=== PATIENT | female | born 1995 | race Caucasian/White ===

== ENCOUNTER → 2019-04-02 08:46 | Outpatient (CLI) | payer BC, SELFPAY ==
[2019-04-02 10:25] LABS: Basophils # 0.1 K/mm3 (0-0.2); Basophils % 0.7 % (0.1-2.0); Eosinophils # 0.2 K/mm3 (0.0-0.4); Eosinophils % 2.6 % (0.1-12.0); Hematocrit 42.3 % (37.0-47.0); Hemoglobin 13.3 g/dL (12.2-16.2); Lymphocytes # 3.2 K/mm3 (0.7-4.5); Lymphocytes % 42.1 % (10-50); Mean Corpuscular HGB Conc 31.4 g/dL (31.8-35.4); Mean Corpuscular Hemoglobin 27.8 pg (27.0-31.2); Mean Corpuscular Volume 88.4 fl (81-99); Mean Platelet Volume 6.7 fl (7.4-10.4); Monocytes # 0.5 K/mm3 (0.1-1.0); Neutrophils # 3.7 K/mm3 (1.8-7.8); Neutrophils % 48.5 % (37.0-80.0); Platelet Count 285 K/mm3 (142-424); Red Blood Count 4.79 M/mm3 (4.20-5.40); Red Cell Distribution Width 13.2 % (11.5-17.5); White Blood Count 7.6 K/mm3 (4.8-10.8)
[2019-04-02 11:12] LABS: Alanine Aminotransferase 26 U/L (12-78); Albumin Level 3.8 gm/dL (3.4-5.0); Albumin/Globulin Ratio 1.1 (1.1-1.8); Alkaline Phosphatase 53 U/L (46-116); Anion Gap 14.5 mEq/L (5-15); Aspartate Amino Transferase 16 U/L (15-37); Bilirubin,Total 0.5 mg/dL (0.2-1.0); Blood Urea Nitrogen 12 mg/dL (7-18); Calcium 9.4 mg/dL (8.5-10.1); Carbon Dioxide 27 mmol/L (21.0-32.0); Chloride 104 mmol/L (98-107); Creatinine,Serum 0.95 mg/dL (0.55-1.02); Estimated Glomerular Filt Rate 72 ml/min (>60); GFR (African American) 87 ML/MIN (>60); Globulin 3.5 gm/dl (1.3-3.2); Glucose 97 mg/dL (74-106); Potassium 4.5 mmoL/L (3.5-5.1); Sodium 141 mmol/L (136-145); Total Protein,Serum 7.3 gm/dL (6.4-8.2)
[2019-04-04 20:02] LABS: Folate 12.9 ng/mL (>3.0)
[2019-04-04 20:03] LABS: Vitamin B12 539 pg/mL (232-1245)
== END ==
PROVIDERS: Visit Provider Internal Medicine Adolescent Medicine
DX: R53.83 Other fatigue (principal); R53.81 Other malaise
CPT/HCPCS: 36415; 80053; 82607; 82746; 85025

== ENCOUNTER 2020-06-04 15:56 | Outpatient (CLI) | payer BC, SELFPAY ==
[2020-06-04 16:25] VITALS: BP 135/92; PULSE 103; RESP 18; TEMP 36.6
[2020-06-04 17:00] VITALS: BP 125/66; PULSE 89; RESP 18
== END 2020-06-04 17:10 | disposition home or self-care (01) ==
PROVIDERS: PCP Internal Medicine Adolescent Medicine
DX: H54.62 Unqualified visual loss, left eye, normal vision right eye (principal)
CPT/HCPCS: 96365

== ENCOUNTER 2020-06-05 16:07 | Outpatient (CLI) | payer BC, SELFPAY ==
[2020-06-05 16:10] VITALS: BP 118/59; PULSE 91; RESP 18; TEMP 36.6; O2SAT 97
[2020-06-05 16:53] VITALS: BP 133/59; PULSE 76; RESP 18
== END 2020-06-05 16:53 | disposition home or self-care (01) ==
LOC: INF 16:07
PROVIDERS: PCP Internal Medicine Adolescent Medicine
DX: H54.62 Unqualified visual loss, left eye, normal vision right eye (principal)
CPT/HCPCS: 96365

== ENCOUNTER → 2020-08-15 10:01 | Outpatient (CLI) | payer BC, SELFPAY | PROVIDERS: PCP Internal Medicine Adolescent Medicine; Visit Provider Internal Medicine Adolescent Medicine | DX: Z03.818 Encounter for observation for suspected exposure to other biological agents ruled out (principal) | CPT/HCPCS: U0003 ==

== ENCOUNTER → 2021-06-08 14:52 | Outpatient (CLI) | payer OTHER, SELFPAY | PROVIDERS: PCP Internal Medicine Adolescent Medicine; Visit Provider Nurse Practitioner | DX: Z20.822 Contact with and (suspected) exposure to COVID-19 (principal) | CPT/HCPCS: C9803; U0003; U0005 ==

== ENCOUNTER → 2021-08-10 14:59 | Outpatient (POV) | payer BC, SELFPAY | PROVIDERS: Visit Provider Dermatology | DX: Z00.00 Encounter for general adult medical examination without abnormal findings (principal) ==

== ENCOUNTER → 2021-08-30 16:37 | Outpatient (CLI) | payer OTHER, BC, SELFPAY | PROVIDERS: PCP Internal Medicine Adolescent Medicine; Visit Provider Nurse Practitioner | DX: Z20.822 Contact with and (suspected) exposure to COVID-19 (principal) | CPT/HCPCS: C9803; U0003; U0005 ==

== ENCOUNTER → 2021-09-08 15:25 | Outpatient (CLI) | payer OTHER, BC, SELFPAY | PROVIDERS: PCP Radiology Diagnostic Radiology; Visit Provider Nurse Practitioner | DX: Z20.822 Contact with and (suspected) exposure to COVID-19 (principal) | CPT/HCPCS: C9803; U0003; U0005 ==

== ENCOUNTER → 2021-09-15 12:17 | Outpatient (CLI) | payer BC, SELFPAY | PROVIDERS: PCP Radiology Diagnostic Radiology; Visit Provider Nurse Practitioner | DX: Z20.822 Contact with and (suspected) exposure to COVID-19 (principal) | CPT/HCPCS: C9803; U0003; U0005 ==

== ENCOUNTER → 2021-09-20 15:45 | Outpatient (CLI) | payer OTHER, BC, SELFPAY | PROVIDERS: PCP Internal Medicine Adolescent Medicine; Visit Provider Nurse Practitioner | DX: U07.1 COVID-19 (principal) | CPT/HCPCS: C9803; U0003; U0005 ==

== ENCOUNTER → 2021-10-29 15:18 | Outpatient (CLI) | payer BC, SELFPAY ==
--- NOTE | 2021-10-29 16:18 | XR_ITS ---
FINAL REPORT CLINICAL HISTORY: COVID OUTPATIENT, COUGH, HX OF COVID 10/09 FINDINGS: The heart size is normal. The mediastinum is normal. There is no focal infiltrate or edema. There are left lung base opacities consistent with pneumonia. There is no pneumothorax. There is no osseous abnormality. IMPRESSION: Left basilar pneumonia. Reviewed, Interpreted and Dictated by Khai Bazan III, MD Transcribed by Miguel Campos Authenticated by Khai Bazan III, MD on 10/29/2021 04:36:[address] [facility]
== END ==
PROVIDERS: PCP Internal Medicine Adolescent Medicine; Visit Provider Internal Medicine Adolescent Medicine
DX: Z11.52 Encounter for screening for COVID-19 (principal); R50.9 Fever, unspecified; R05.9 Cough, unspecified
CPT/HCPCS: 71045; 87275; 87276; C9803; U0003; U0005

== ENCOUNTER → 2021-11-23 16:53 | Outpatient (CLI) | payer BC, SELFPAY ==
--- NOTE | 2021-11-23 | XR_ITS ---
PROCEDURE INFORMATION: Exam: XR Chest Exam date and time: 11/23/2021 12:00 AM Age: 26 years old Clinical indication: Pain; Right-sided TECHNIQUE: Imaging protocol: XR of the chest. Views: 2 views. COMPARISON: CR XR CHEST PORTABLE 10/29/2021 4:17 PM FINDINGS: Lungs: Scattered minimal to mild patchy airspace opacities. Pleural spaces: No significant pleural effusion. No pneumothorax. Heart/Mediastinum: No cardiomegaly. Bones/joints: No displaced fracture. Soft tissues: Unremarkable. IMPRESSION: Findings compatible with multifocal pneumonia (bacterial or viral). Followup to resolution to exclude underlying pathology.
== END ==
PROVIDERS: PCP Nurse Practitioner Family; Visit Provider Nurse Practitioner Family
DX: R07.9 Chest pain, unspecified (principal); R05.9 Cough, unspecified
CPT/HCPCS: 71046

== ENCOUNTER → 2021-12-02 16:32 | Outpatient (CLI) | payer BC, SELFPAY | PROVIDERS: Visit Provider Internal Medicine Pulmonary Disease | DX: Z01.812 Encounter for preprocedural laboratory examination (principal); Z11.52 Encounter for screening for COVID-19 | CPT/HCPCS: C9803; U0003; U0005 ==

== ENCOUNTER 2021-12-03 12:11 | Day surgery (SDC) | payer BC, SELFPAY ==
[2021-12-03] VITALS (8 sets, daily range): BP systolic 100–118; BP diastolic 56–82; PULSE 104–122; RESP 16–20; TEMP 36.7–37.2; O2SAT 93–99; BMI 29.2
[2021-12-03 12:30] LABS: Urine Pregnancy, HCG Qual. Negative (Negative)
--- NOTE | 2021-12-03 13:46 | SUR.PREOP ---
1330 - PT RESTING IN BED. NO NEEDS OR CONCERNS VOICED. AT BEDSIDE.
--- NOTE | 2021-12-03 15:27 | P.PN_ITS ---
[facility] [place] Anesthesia Checklist - Patient Identification Patient Identification: Arm Band - Structural Data Admitted From: Home Planned Operative Procedure/s: Bronchoscopy Consent for Planned Operative Procedure(s) Verified: Yes Verified Documents: Surgical Consent, History and Physical - NPO Status Verified Time NPO: 00:00 - Additional verifications Anesthesia Reactions: No Hx Blood Transfusions: No Blood Transfusion Reaction: No - Airway Assessment C-Spine Mobility Assessed: Yes (mp2) TMJ Mobility Assessed: Yes Dentition: Good Dentition - Neurological Assessment Level of Consciousness: Awake, Alert - Anesthesia Plan Anesthesia Risk discussed: Yes Anesthesia Plan: Verified ASA Class: II Anesthesia Type: General [facility] [place] History I have reviewed the patient's past medical history: Yes Medical History: Denies:: Cancer, Diabetes Mellitus Type 1, Diabetes Mellitus Type 2, Internal Pacemaker, MRSA, Seizures *Have you ever received a pneumonia vaccine?: No *Have you received a flu vaccine this season?: Yes Other Medical History: Denies: Blood Transfusion Reaction Anesthesia experience/problems:: nac Other Surgeries: Yes: Appendectomy, , Other. No: Pacemaker Amputation: No Fractures: No - *Social History Last grade of school completed: Advanced degree Smoking Status: Never smoker Alcohol Intake: never Alcohol Intake Frequency:: a few times a week Substance Use Type: denies use *Occupational Status:: employed Housing: house Household Members: family, children *Travel in the last 8 weeks: None Family Hx:: Cancer
--- NOTE | 2021-12-03 15:45 | XR_ITS ---
FINAL REPORT CLINICAL HISTORY: BRONCH back in surgery FINDINGS: FLUORO TIME PROCEDURE: Fluoroscopy in the operating room. HISTORY: Bronchoscopy FINDINGS: Fluoroscopy time was provided by the radiology department for the clinical service. 1 film was obtained. Fluoroscopy exposure time: 1.5 minutes IMPRESSION: See above Reviewed, Interpreted and Dictated by Khai Bazan III, MD Transcribed by Corrie Anaya Authenticated by Khai Bazan III, MD on 12/03/2021 04:45:16 PM [facility]
--- NOTE | 2021-12-03 15:56 | HMH.BRONCH ---
- Procedure: Date: 12/03/21 Patient Date of :: 1995 Procedure Performed:: Bronchoscopy with bronchoalveolar lavage and Transbronchial Biopsy Indications:: Recurrent Pneumonia Performing Provider:: Armin Carreon MD Referring Provider:: Dr. Day Sedation:: General Anesthesia Procedure:: Bronchoscopy with bronchoalveolar lavage and Transbronchial Biopsy: Clean therapeutic bronchoscope is advanced via ET tube and airways were examined upto segmental bronchi. No obvious airway abnormality noted. Airways appear grossly normal. No excess mucous secretions noted, no obvious bleeding or old blood clots noted. Bronchoalveolar lavage was performed in left upper lobe apicoposterior with total of 60cc normal saline instillation with return of clear 35 cc back. BAL fluid was send for AFB, fungal, bacterial stain and cultures along with cytopathology. Bronchoalveolar lavage was performed in right upper lobe anterior segment with total of 60cc normal saline instillation with return of clear 40 cc back. BAL fluid was send for AFB, fungal, bacterial stain and cultures along with cytopathology. Transbronchial biopsies were performed in ight upper lobe anterior segment. Total of 9 biopsies were performed. Five biopsy samples were sent in formalin for cytpathological examination. Remaining four biopsy specimens were sent in normal saline specimen cups with two specimens each requested for AFB, fungal, bacterial stain and cultures AFB and fungal stains were also requested on BAL and transbronchial biopsies on cytopathological request form. Findings:: Please see procedure note Recommendations:: F/U clinic in 7 days Complications:: None Estimated blood obtained (mL): 5
--- NOTE | 2021-12-03 16:25 | PC.NURSE ---
1618-detailed report called to MADDISON Webb 1620-pt transported to post op via stretcher w/sonya rails up and left in care of MADDISON Webb with bed locked in lowest position, vss, pt stable
--- NOTE | 2021-12-04 13:21 | HMH.ANESII ---
[facility] Anesthesia Record Part II Discharge Time: 16:20 Destination: Surgical Day Care (OP Surgery) PACU nurse assessment reviewed?: Yes Patient Condition:: Good Anesthesia Complications:: None Swallowing reflex intact?: Yes Cyanosis?: No Blood Pressure: 111/70 Pulse Rate: 104 Temperature: 98.9 F Mental Status: Alert & Oriented Pain level:: 0 Nausea and/or vomitting:: None Intake, IV Amount: 0
[2021-12-04 13:22] VITALS: BP 111/70; PULSE 104; TEMP 37.2
--- NOTE | 2021-12-04 13:24 | HMH.ANESI ---
[facility] Anesthesia Record Part I Intake, IV Amount: 800 Estimated blood loss (mL): 0 Urine output (mL): 0 Blood Pressure: 107/82 SaO2: 97 Pulse Rate: 122 Respiratory Rate: 16 Temperature: 99 F Patient is:: Drowsy, Stable Stable to PACU at:: 15:50
[2021-12-04 13:26] VITALS: BP 107/82; PULSE 122; RESP 16; TEMP 37.2; O2SAT 97
== END 2021-12-03 16:52 | disposition home or self-care (01) ==
LOC: OR 12:15
PROVIDERS: PCP Internal Medicine Adolescent Medicine; Visit Provider Internal Medicine Pulmonary Disease
PROC: (CPT 31624; principal; 2021-12-03 12:45)
DX: J18.9 Pneumonia, unspecified organism (principal); Z86.16 Personal history of COVID-19; R05.3 Chronic cough
CPT/HCPCS: 31624; 31628; 71045; 76000; 81025; 87070; 87077; 87102; 87116; 87186; 87205; 87206; 89051; J2405; J2710

== ENCOUNTER 2021-12-03 19:01 | Emergency (ER) | payer BC, SELFPAY ==
[2021-12-03] VITALS (7 sets, daily range): BP systolic 95–121; BP diastolic 46–60; PULSE 102–136; RESP 18–22; TEMP 36.8–38.7; O2SAT 88–99; BMI 28.3
--- NOTE | 2021-12-03 19:09 | ECG_ITS ---
APPROVED REPORT Exam: Resting ECG HR:122 bpm ECG Measurements Heart Rate 122 AXES GA 113 P 79 QRSd 88 QRS 95 QT 295 T 66 QTc 368 Conclusion SINUS TACHYCARDIA WITH SHORT GA INTERVAL BORDERLINE RIGHT AXIS DEVIATION [QRS AXIS > 90] ABNORMAL RHYTHM ECG UNCONFIRMED REPORT Electronically signed by : Flako Day MD 12/04/2021 12:27:34
--- NOTE | 2021-12-03 19:33 | XR_ITS ---
PROCEDURE INFORMATION: Exam: XR Chest Exam date and time: 12/03/2021 7:29 PM Age: 26 years old Clinical indication: Shortness of breath; Prior surgery; Surgery date: Post-operative (0-2 days); Surgery type: Bronchoscopy today; Additional info: SOA TECHNIQUE: Imaging protocol: XR of the chest. Views: 2 views. COMPARISON: SD XR CHEST AP 12/03/2021 3:45 PM FINDINGS: Lungs: Patchy airspace opacity throughout the right mid and lower lung zones. Pleural spaces: Unremarkable. No pleural effusion. No pneumothorax. Heart/Mediastinum: Unremarkable. No cardiomegaly. Bones/joints: Unremarkable. IMPRESSION: Patchy airspace opacity throughout the right mid and lower lung zones for which follow-up to radiographic clearance is again recommended.
[2021-12-03 20:09] LABS: Basophils % 0.5 % (0.1-2.0); Chloride 107 mmol/L (98-107); Hematocrit 34.7 % (37.0-47.0); Hemoglobin 11.6 g/dL (12.2-16.2); Lymphocytes # 0.7 K/mm3 (0.7-4.5); Lymphocytes % 8.9 % (10-50); Mean Corpuscular HGB Conc 33.5 g/dL (31.8-35.4); Mean Corpuscular Hemoglobin 28.2 pg (27.0-31.2); Mean Corpuscular Volume 84.2 fl (81-99); Mean Platelet Volume 8.2 fl (7.4-10.4); Monocytes # 0.1 K/mm3 (0.1-1.0); Neutrophils # 6.4 K/mm3 (1.8-7.8); Neutrophils % 88.5 % (37.0-80.0); Platelet Count 272 K/mm3 (142-424); Red Blood Count 4.12 M/mm3 (4.20-5.40); White Blood Count 7.2 K/mm3 (4.8-10.8)
[2021-12-03 20:10] LABS: Potassium 3.6 mmoL/L (3.5-5.1); Sodium 137 mmol/L (136-145)
[2021-12-03 20:12] LABS: Alanine Aminotransferase 48 U/L (12-78); Alkaline Phosphatase 85 U/L (38-126); Aspartate Amino Transferase 43 U/L (14-36); Bilirubin,Total 0.4 mg/dl (0.2-1.3); Blood Urea Nitrogen 6 mg/dl (7-17); Creatinine Clearance Estimated 150 mL/min (50-200); Estimated Glomerular Filt Rate 119 ml/min (>60); GFR (African American) 144 ML/MIN (>60)
[2021-12-03 20:13] LABS: Albumin Level 3.7 g/dl (3.5-5.0); Albumin/Globulin Ratio 1.3 (1.1-1.8); Anion Gap 10.6 mEq/L (5-15); Calcium 7.9 mg/dl (8.4-10.2); Carbon Dioxide 23 mmol/L (22.0-30.0); Globulin 2.8 g/dL (1.3-3.2); Glucose 116 mg/dl (74-100); Lactic Acid 1.6 mmol/L (0.7-2.1); Total Protein,Serum 6.5 g/dl (6.3-8.2)
[2021-12-03 20:28] LABS: Troponin I < 0.01 ng/ml (0.00-0.034)
[2021-12-03 20:30] LABS: MANUAL DIFFERENTIAL MANUAL DIFFERENTIAL (MANUAL DIFF)
[2021-12-03 20:32] LABS: Procalcitonin 0.072 ng/mL (0.0-2.0)
--- NOTE | 2021-12-03 20:40 | HMH.EDSOB ---
ED Disposition Clinical Impression: Vasovagal episode Community acquired pneumonia Qualifiers: Laterality: unspecified laterality Qualified Code(s): J18.9 - Pneumonia, unspecified organism Disposition: Home, Self-Care Condition on Discharge: Good Instructions: DI for Shortness of Breath Additional Instructions: see pcp and pul for follow up Referrals: Flako Day MD [Primary Care Provider] - Armin Carreon MD [Physician] - - Critical Care Critical Care Time: No Attestation: On 12/03/21, the high probability of a clinically significant, sudden or life threatening deterioration of the following system(s) required my full and direct attention, intervention and personal management. The time I documented below is in addition to time spent performing reported procedures but includes the following listed in this critical care notation. Medical Decision Making - Medical Records Medical records reviewed: Yes: I reviewed the patient's medical records. - Owen Inquiry Pt receiving controlled substance: No Vital Signs: 12/03/21 19:02 Temperature 101.6 F H Temperature Source Oral Pulse Rate [Right] 131 H Respiratory Rate 22 Blood Pressure [Right Arm] 121/60 Blood Pressure Mean [Right Arm] 80 02 Sat by Pulse Oximetry 88 L Oxygen Delivery Method Room Air - Lab Data Lab results reviewed: Yes: I reviewed the patient's lab results. Lab Results 12/03/21 19:49: WBC 7.2, RBC 4.12 L, Hgb 11.6 L, Hct 34.7 L, MCV 84.2, MCH 28.2, MCHC 33.5, RDW 14.0, Plt Count 272, MPV 8.2, Neut % (Auto) 88.5 H, Lymph % (Auto) 8.9 L, Clayton % (Auto) 2.0, Eos % (Auto) 0.0 L, Baso % (Auto) 0.5, Neut # (Auto) 6.4, Lymph # (Auto) 0.7, Clayton # (Auto) 0.1, Eos # (Auto) 0.0, Baso # (Auto) 0.0 12/03/21 19:49: Sodium 137, Potassium 3.6, Chloride 107, Carbon Dioxide 23, Anion Gap 10.6, BUN 6 L, Creatinine 0.60, Estimated Creat Clear 150, Estimated GFR 119, Est GFR ( Amer) 144, Glucose 116 H, Calcium 7.9 L, Total Bilirubin 0.4, AST 43 H, ALT 48, Alkaline Phosphatase 85, Troponin I < 0.01, C-Reactive Protein 72.0 H, Total Protein 6.5, Albumin 3.7, Globulin 2.8, Albumin/Globulin Ratio 1.3 12/03/21 19:49: Lactate 1.6 Result diagrams: 12/03/21 19:49 12/03/21 19:49 Orders (Tests/Meds): ED MEDICATIONS Generic Name Dose Route Start Last Admin Trade Name Freq PRN Reason Stop Dose Admin Sodium Chloride 1,000 mls @ 999 mls/hr 12/03/21 19:45 12/03/21 19:55 Sod Chlor 0.9% 1000ml Bag IV 12/03/21 20:45 999 mls/hr .Q1H1M JOSE Administration Discontinued Medications Generic Name Dose Route Start Last Admin Trade Name Freq PRN Reason Stop Dose Admin Acetaminophen 1,000 mg 12/03/21 19:36 12/03/21 19:55 Acetaminophen 500mg Tab PO 12/03/21 19:37 1,000 mg ONCE ONE Administration Ketorolac Tromethamine 30 mg 12/03/21 19:36 12/03/21 19:55 Ketorolac 30mg/Ml Vial IV 12/03/21 19:37 30 mg ONCE ONE Administration Methylprednisolone Sodium Succinate 125 mg 12/03/21 19:36 12/03/21 19:55 Methylprednisolone Sod Succ 125mg Vial IV 12/03/21 19:37 125 mg ONCE ONE Administration ORDERS Category Date Time Status CTA Chest [CT angio chest PE protocol] Stat Cat Scan 12/03/21 19:35 Ordered C-Reactive Protein Stat Lab 12/03/21 19:49 Results Complete Blood Count Auto Diff Stat Lab 12/03/21 19:49 Results Comprehensive Metabolic Panel Stat Lab 12/03/21 19:49 Results Erythrocyte Sedimentation Rate Stat Lab 12/03/21 19:49 Results Procalcitonin Stat Lab 12/03/21 19:49 Results Troponin I Q3H Lab 12/03/21 23:00 Ordered Troponin I Q3H Lab 12/04/21 02:00 Ordered Troponin I Stat Lab 12/03/21 19:49 Results Blood Culture Stat Micro 12/03/21 19:49 Received - Radiology Data #1 Image(s): Chest Image Reviewed: Yes I have reviewed radiologist's interpretation Preliminary Findings: Abnormal (see report ) - ECG Data Tracing #1 Arrhythmias present: sinus tach Ischemic changes: non-s
--- NOTE | 2021-12-03 20:45 | PC.NURSE ---
Dr. Carney s/w Dr. Zuñiga
[2021-12-03 21:42] LABS: Erythrocyte Sedimentation Rate 119 mm/hr (0-20)
[2021-12-03 21:54] LABS: Lymphocytes % 11 % (10-50); Monocytes % 3 % (2-9); Neutrophils % 85 % (42-76); Platelet Estimate Normal; Total Cells Counted 100
== END 2021-12-03 21:02 | disposition home or self-care (01) ==
PROVIDERS: Emergency Medicine; Emergency Provider Emergency Medicine; PCP Internal Medicine Adolescent Medicine
DX: R55 Syncope and collapse (principal); J18.9 Pneumonia, unspecified organism; R00.0 Tachycardia, unspecified; R01.1 Cardiac murmur, unspecified; Z79.899 Other long term (current) drug therapy; Z80.9 Family history of malignant neoplasm, unspecified
CPT/HCPCS: 71046; 80053; 83605; 84145; 84484; 85007; 85025; 85651; 86140; 87040; 93005; 96361; 96365; 96374; 96375; 99284

== ENCOUNTER → 2022-05-11 08:55 | Outpatient (CLI) | payer BC, SELFPAY ==
[2022-05-11 09:43] LABS: Basophils # 0.2 K/mm3 (0-0.2); Basophils % 2.3 % (0.1-2.0); Eosinophils % 0.1 % (0.1-12.0); Hematocrit 40.5 % (37.0-47.0); Hemoglobin 12.5 g/dL (12.2-16.2); Lymphocytes # 3.4 K/mm3 (0.7-4.5); Lymphocytes % 52.8 % (10-50); Mean Corpuscular HGB Conc 30.8 g/dL (31.8-35.4); Mean Corpuscular Hemoglobin 26.7 pg (27.0-31.2); Mean Corpuscular Volume 86.5 fl (81-99); Mean Platelet Volume 7.2 fl (7.4-10.4); Monocytes # 0.5 K/mm3 (0.1-1.0); Monocytes % 6.9 % (1.7-9.3); Neutrophils # 2.5 K/mm3 (1.8-7.8); Neutrophils % 37.8 % (37.0-80.0); Platelet Count 463 K/mm3 (142-424); Red Blood Count 4.69 M/mm3 (4.20-5.40); Red Cell Distribution Width 14.6 % (11.5-17.5); White Blood Count 6.5 K/mm3 (4.8-10.8)
[2022-05-11 09:45] LABS: MANUAL DIFFERENTIAL MANUAL DIFFERENTIAL (MANUAL DIFF)
[2022-05-11 10:22] LABS: Lymphocytes % 63 % (10-50); Monocytes % 2 % (2-9); Neutrophils % 35 % (42-76); Total Cells Counted 100
[2022-05-11 10:24] LABS: Hypochromasia 1+; Platelet Estimate Normal
== END ==
PROVIDERS: PCP Internal Medicine Adolescent Medicine; Visit Provider Nurse Practitioner
DX: D70.9 Neutropenia, unspecified (principal); R50.81 Fever presenting with conditions classified elsewhere
CPT/HCPCS: 36415; 85007; 85025

== ENCOUNTER → 2022-12-13 08:42 | Outpatient (CLI) | payer BC, SELFPAY | PROVIDERS: PCP Nurse Practitioner Family; Visit Provider Nurse Practitioner Family | DX: J22 Unspecified acute lower respiratory infection (principal) | CPT/HCPCS: 87070; 87077; 87205 ==

== ENCOUNTER 2024-01-09 14:58 | Emergency (ER) | payer BC, SELFPAY ==
[2024-01-09 15:10] VITALS: BP 127/91; PULSE 116; RESP 21; TEMP 37; O2SAT 99; BMI 29.0
--- NOTE | 2024-01-09 15:33 | EXP.UTC ---
Discharge Plan Disposition Patient Disposition: Home, Self-Care Condition: Good Prescriptions Prescriptions: No Action fluticasone propionate [Flonase Allergy Relief] 50 mcg/actuation spray,suspension 2 spray NS BID 90 Days Qty: 16 3RF Rx Instructions: administer into each nostril mycophenolate mofetil 250 mg capsule See Rx Instructions .ROUTE .COMPLEX Rx Instructions: see rx sertraline 25 MG tablet 25 mg PO DAILY Referrals Follow up/Referrals: Shanda Martin APRN [Primary Care Provider] - See instructions Activity Restrictions/Add. Instructions Additional Instructions/Restrictions: *Monitor Temp, Over the counter Motrin or Tylenol as directed/as needed Tylenol every 4 hours and Motrin every 6 hours (as long as your family doctor has told you that you can take it) for fever or pain. and straight to ER if unable to lower temp less than 101.0 after medication given *Warm salt water gargles may help to soothe the throat *Throat Lozenges? *Warm fluids like tea with honey may help to soothe the throat? *Sleep elevated *Humidifier/Vaporizer Follow up IMMEDIATELY for new or worsening symptoms or no Noticeable improvement over the next 48-72 hours. 911 for difficulty breathing or swallowing You were tested for today for Upper Respiratory Panel with COVID19 your test result should be back in the next 24hours, you may check your results on the [facility] Health Portal Clinical Impressions Clinical Impression: Viral syndrome Instructions Patient Instructions: DI for Viral Syndrome, DI for Fever (Symptom) -- Adult Discharge ED Provider: Evelina Ritter [facility] [place] HPI General Stated complaint: fever/chills Mode of Arrival: Ambulatory Source of Information: Patient Limitations: No Limitations Time Seen by Provider: 01/09/24 15:33 Description of Symptoms (Recalled from Triage Doc. by RN): Pt's symptoms are fever, and chills. HEENT Symptoms (Recalled from RN notes): Yes Resp Symptoms (Recalled from RN notes): No Skin Symptoms (Recalled from RN notes): No MS Symptoms (Recalled from RN notes): No Functional Status (Recalled from RN notes): n/a History of Present Illness Provider Complaint: Patient states that she has been having fever, chills and body aches, States that her whole family has been having similar symptoms requesting Upper Respiratory Panel Related Data Home Medications Medication Instructions Recorded Confirmed sertraline 25 mg tablet 25 mg PO DAILY . 12/03/21 04/07/22 mycophenolate mofetil 250 mg See Rx Instructions .Route .COMPLEX 01/09/24 01/09/24 capsule Previous Rx's Medication Instructions Recorded fluticasone propionate 50 2 spray intranasal BID 90 days #16 04/07/22 mcg/actuation nasal grams spray,suspension (Flonase Allergy Relief) Allergies Allergy/AdvReac Type Severity Reaction Status Date / Time INGREDIENT: NO KNOWN - NO Allergy Unknown Uncoded 01/09/24 15:30 KNOWN DRUG ALLERGY Worker's Comp Is this a Worker's Comp case?: No [facility] Disclaimer: The information contained in this section may have been updated after the patient was seen, as this information can be updated by other users. 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 current occupational exposures/hazards: No caffeine: Yes ROS Obtained: Yes All systems reviewed & no additional complaints except as documented and Yes Systems reviewed as appropriate & no additional complaints except as documented Constitutional Constitutional: Reports system reviewed and no additional complaints, except as documented, Reports as per HPI, Reports body ache, Reports chills and Reports fever(s) ENT Ears, Nose, Mouth, and Throat: Reports system reviewed and no additional complaints, except as documented and Reports as per HPI Cardiovascular Cardiovascular: Reports system reviewed and no additional complaints, except as documented and Reports as per HPI Respiratory Respiratory: Reports system reviewed and no additional complaints, except as documented and Reports as per HPI Gastrointestinal Gastrointestingal: Reports system reviewed and no additional complaints, except as documented and as per HPI Physical Exam General General appearance: alert and in no apparent distress ENT ENT exam: Present mucous membranes moist Respiratory Respiratory exam: Present normal lung sounds bilaterally; Absent respiratory distress or wheezes Cardiovascular Cardiovascular exam: Present regular rate, normal rhythm and tachycardia Neurological Exam Neurological exam: Present alert, oriented X3 and normal gait Medical Decision Making Owen Inquiry Pt receiving controlled substance: No Owen was queried for this patient: No Vital Signs: 01/09/24 15:10 Temperature 98.6 F Temperature Source Oral Pulse Rate [Right Radial] 116 H Respiratory Rate 21 Blood Pressure [Right Arm] 127/91 H Blood Pressure Mean [Right Arm] 103 Blood Pressure Source [Right Arm] Automatic Cuff Blood Pressure Position [Right Arm] Sitting 02 Sat by Pulse Oximetry 99 Oxygen Delivery Method Room Air Orders (Tests/Meds): ORDERS Category Date Time Status Full Resp Panel w/COVID ([facility]) Routine Lab 01/09/24 15:51 Received
[2024-01-09 15:43] VITALS: BP 127/91; PULSE 116; RESP 21; TEMP 37; O2SAT 99
[2024-01-09 15:51] LABS: Coronavirus 19, PCR Not Detected (NotDetected); Coronavirus 229E Not Detected (NotDetected); Coronavirus NL63 Not Detected (NotDetected); Coronavirus OC43 Not Detected (NotDetected); Coronovirus HKU1,PCR Not Detected (NotDetected); Human Metapneumovirus Not Detected (NotDetected); Influenza A, PCR Not Detected (NotDetected); Influenza AH1, 2009 Not Detected (NotDetected); Influenza AH1, PCR Not Detected (NotDetected); Influenza B, PCR Not Detected (NotDetected); Parainfluenza 1, PCR Not Detected (NotDetected); Parainfluenza 2, PCR Not Detected (NotDetected); Parainfluenza 3, PCR Not Detected (NotDetected); Parainfluenza 4, PCR Not Detected (NotDetected); Respiratory Syncytial Virus Not Detected (NotDetected); Rhinovirus/Enterovirus Not Detected (NotDetected)
[2024-01-09 15:53] LABS: Adenovirus,PCR Not Detected (NotDetected)
[2024-01-09 18:18] LABS: Influenza AH3,PCR Detected (NotDetected)
== END 2024-01-09 15:43 | disposition home or self-care (01) ==
PROVIDERS: Emergency Provider Nurse Practitioner; PCP Nurse Practitioner Family
DX: J10.1 Influenza due to other identified influenza virus with other respiratory manifestations (principal); R50.9 Fever, unspecified; M79.18 Myalgia, other site
CPT/HCPCS: 87632; 87635; 99204; 99212; G0463